=== PATIENT | male | born 1995 | race Caucasian/White ===

== ENCOUNTER 2018-07-30 18:36 | Emergency (ER) | payer OTHER ==
[~2018-07-30] VITALS: Ht 180.3 cm; Wt 71.2 kg
[2018-07-30 19:08] VITALS: BP_SYST 140
[2018-07-30 20:20] VITALS: BP_SYST 137
== END 2018-07-30 20:20 | disposition home or self-care (01) ==
LOC: SED 18:36
DX: S02.2XXA Fracture of nasal bones, initial encounter for closed fracture (principal); W19.XXXA Unspecified fall, initial encounter; Y93.89 Activity, other specified; Y92.89 Other specified places as the place of occurrence of the external cause; Y99.8 Other external cause status
CPT/HCPCS: 70160-TC; 99284

== ENCOUNTER 2018-09-05 20:03 | Emergency (ER) | payer OTHER ==
[~2018-09-05] VITALS: Ht 180.3 cm; Wt 75.7 kg
[2018-09-05 20:14] VITALS: BP_SYST 134
[2018-09-05] MEDS ORDERED: NACL 0.9% 1,000 ML IV ONE (20:47)
[2018-09-05 21:24] LABS: BILIRUBIN,URINE NEGATIVE (NEGATIVE); BLOOD, URINE NEGATIVE (NEGATIVE); CLARITY/URINE CLEAR (CLEAR); COLOR,URINE YELLOW (YELLOW); GLUCOSE,URINE NEGATIVE (NEGATIVE); KETONES,URINE NEGATIVE (NEGATIVE); LEUKOCYTE ESTERASE ,URINE NEGATIVE (NEGATIVE); NITRITE, URINE NEGATIVE (NEGATIVE); PROTEIN URINE NEGATIVE (NEGATIVE); UROBILINOGEN,URINE 0.2 (0.2-1.0)
[2018-09-05 21:30] LABS: CALCIUM 9.6 mg/dL (8.4-11.0); CREATININE 0.94 mg/dL (0.55-1.30); POTASSIUM 4.2 mmol/L (3.5-5.1)
[2018-09-05 21:35] LABS: ALBUMIN 3.7 g/dL (3.4-4.8); TOTAL BILIRUBIN 0.5 mg/dL (0.0-1.0)
[2018-09-05 21:49] LABS: BASOPHILS # (AUTO) 0.1 K/uL (0.0-0.2); BASOPHILS % (AUTO) 1.2 % (0.0-2.0); EOSINOPHILS # (AUTO) 0.2 K/uL (0.0-0.4); HEMATOCRIT 45.4 % (36-54); HEMOGLOBIN 15.4 g/dL (14.0-18.0); LYMPHOCYTES # (AUTO) 2.8 K/uL (1.0-5.5); LYMPHOCYTES % (AUTO) 24.8 % (20.5-51.5); MEAN CORPUSCULAR HEMOGLOBIN 34 pg (27-31); MEAN CORPUSCULAR HGB CONC 34 % (32-36); MEAN CORPUSCULAR VOLUME 101 fL (79.0-98.0); MONOCYTES # (AUTO) 0.8 K/uL (0.0-1.0); MONOCYTES % (AUTO) 7.1 % (1.7-9.3); NEUTROPHILS # (AUTO) 7.5 K/uL (1.8-7.7); NEUTROPHILS % (AUTO) 64.9 % (40.0-70.0); PLATELET COUNT (AUTO) 449 K/uL (130-430); RED BLOOD CELL COUNT(AUTO) 4.49 MIL/uL (4.2-6.2); RED CELL DISTRIBUTION WIDTH 12.1 % (9.0-15.0); WHITE BLOOD COUNT (AUTO) 11.4 K/uL (4.8-10.8)
[2018-09-05] MEDS ORDERED: AZITHROMYCIN 250 MG TABLET PO ONE (22:15)
[2018-09-05] MEDS ORDERED: AMOXICILLIN 500 MG CAPSULE PO ONE (22:15)
[2018-09-05 22:40] VITALS: BP_SYST 131
== END 2018-09-05 22:40 | disposition home or self-care (01) ==
LOC: SED 20:03
DX: J18.8 Other pneumonia, unspecified organism (principal); J90 Pleural effusion, not elsewhere classified; R07.1 Chest pain on breathing; I10 Essential (primary) hypertension; F17.210 Nicotine dependence, cigarettes, uncomplicated; Z90.49 Acquired absence of other specified parts of digestive tract
CPT/HCPCS: 36415; 80053; 81003; 83690-TC; 85025; 99284

== ENCOUNTER 2020-01-30 09:48 | Emergency (ER) | payer BC, OTHER ==
[~2020-01-30] VITALS: Ht 182.9 cm; Wt 81.6 kg
[2020-01-30 09:54] VITALS: BP_SYST 142
[2020-01-30] MEDS ORDERED: ALBUTEROL MDI INHALATION 8 GM INH INH ONE (10:15)
[2020-01-30 10:34] VITALS: BP_SYST 142
== END 2020-01-30 10:54 | disposition home or self-care (01) ==
LOC: SED 09:48 → EEVIPCON 09:48 → SED 10:54
DX: R05 Cough (principal); I10 Essential (primary) hypertension; Z20.828 Contact with and (suspected) exposure to other viral communicable diseases
CPT/HCPCS: 71045; 99284; U0002

== ENCOUNTER 2021-01-21 08:35 | Emergency (ER) | payer BC ==
[~2021-01-21] VITALS: Ht 180.3 cm; Wt 72.6 kg
[2021-01-21 08:40] VITALS: BP_SYST 123
[2021-01-21] MEDS ORDERED: ONDA-8 TL (08:54)
[2021-01-21 09:04] VITALS: BP_SYST 123
== END 2021-01-21 09:04 | disposition home or self-care (01) ==
LOC: SED 08:35
DX: S00.81XA Abrasion of other part of head, initial encounter (principal); S09.90XA Unspecified injury of head, initial encounter; I10 Essential (primary) hypertension; Z79.899 Other long term (current) drug therapy; W22.8XXA Striking against or struck by other objects, initial encounter; Y93.89 Activity, other specified; Y92.89 Other specified places as the place of occurrence of the external cause; Y99.8 Other external cause status
CPT/HCPCS: 99283